=== PATIENT | male | born 1945 | race Asian ===

== ENCOUNTER 2020-10-04 08:40 | Outpatient (CLI) | payer MEDICARE ==
[2020-10-04 09:12] LABS: CHOL/HDL RATIO 2.3; LDL/HDL RATIO 1.1 (0.5-3.0)
== END 2020-10-04 23:59 | disposition home or self-care (01) ==
LOC: LAB 08:40
PROVIDERS: ATTEND Internal Medicine Cardiovascular Disease
DX: I25.10 Atherosclerotic heart disease of native coronary artery without angina pectoris (principal); E78.2 Mixed hyperlipidemia
CPT/HCPCS: 36415; 80061; 84450; 84460